=== PATIENT | female | born 1990 | race Caucasian/White ===

== ENCOUNTER 2016-03-10 20:36 | Emergency (ER) | payer OTHER ==
[~2016-03-10] VITALS: Ht 162.6 cm; Wt 123.0 kg
[~2016-03-10 20:36] MED LIST: Ascorbic Acid,Ester- PO; Bactrim,Septra DS 80 PO; COLACE100 MG PO; DULCOLAX5 MG PO; FEOSOL325 MG PO; FIORICET,ESG1 TABLET PO; FLOMAX0.4 MG PO; K-DUR20 MEQ PO; LOVENOX40 MG/0.4 SC; LYRICA100 MG PO; MOTRIN800 MG PO; Milk Of Magnesia,MOM PO; NECON PO; NOHOMEMEDS; OxyCONTIN PO; Oyst-Cal D, Oscal W/ PO; Pepcid PO; SENOKOT S,PE1 TABLET PO; THERAGRAN1 TABLET PO; Tylenol Regular Stre PO; VITAMIN C1000 MG PO; VITAMIN D35000 UNIT PO; ZOFRAN ODT8 MG PO; oxyCODONE PO
[2016-03-10 21:31] LABS: INFLUENZA A VIRAL ANTIGEN POSITIVE; INFLUENZA B VIRAL ANTIGEN NEGATIVE
[2016-03-11] MEDS ORDERED: ZANTAC150 MG PO (01:21)
[2016-03-11] MEDS ORDERED: TOPAMAX100 MG PO (01:21)
[2016-03-11] MEDS ORDERED: DASETTA1 EACH PO (01:21)
[2016-03-11 01:53] VITALS: BP 144/99
== END 2016-03-11 01:56 | disposition home or self-care (01) ==
LOC: EME 20:36 → EXP 20:36
DX: J11.1 Influenza due to unidentified influenza virus with other respiratory manifestations (principal)
CPT/HCPCS: 87502; 99281; 99284